=== PATIENT | male | born 1980 | race Caucasian/White ===

== ENCOUNTER 2016-09-19 14:31 | Emergency (ER) | payer OTHER ==
[2016-09-19] MEDS ORDERED: ONDANSETRON 4 MG/2 ML VIAL IVP STA (16:06)
[2016-09-19] MEDS ORDERED: SODIUM CHLORIDE 0.9% 2,000 ML IV STA (16:06)
[2016-09-19] MEDS ORDERED: ACETAMINOPHEN IV (For NPO) 1,000 MG in SALINE 1 100ML.BAG IVPB STA (16:07)
[2016-09-19] MEDS ORDERED: FAMOTIDINE 20 MG/2 ML VIAL IV STA (16:07)
--- NOTE | 2016-09-19 16:09 | ED ---
General Adult HPI - General Chief complaint: Fever Stated complaint: Vomitting/Dizzy Time Seen by Provider: 09/19/16 16:03 Source: patient, family, RN notes reviewed Mode of arrival: ambulatory Limitations: no limitations - History of Present Illness Initial comments: Patient is a pleasant 36-year-old male presenting to the emergency Department with nausea and vomiting. Onset was less than 48 hours ago. Patient has continued nausea and dry heaves. Decreased oral intake. No constipation or diarrhea. Patient last medicine was night quell around 9 this morning. Patient has had subjective fevers. Patient complains of myalgias, mostly of the legs. No abdominal pain. No upper respiratory symptoms. No cough or dyspnea. - Related Data Home Medications Medication Instructions Recorded Confirmed [id number] 1 tab PO Q4HR PRN 09/19/16 09/19/16 [Excedrin] D-Methorphan/Acetamin/Doxylamn 15 - 30 ml PO Q6H PRN 09/19/16 09/19/16 [Vicks Nyquil Cold & Flu Liquid] Losartan Potassium [Cozaar] 50 mg PO DAILY 09/19/16 09/19/16 amLODIPine [Norvasc] 10 mg PO DAILY 09/19/16 09/19/16 lamoTRIgine [LaMICtal] 100 mg PO DAILY 09/19/16 09/19/16 Previous Rx's Medication Instructions Recorded Ondansetron Odt [Zofran Odt] 4 mg PO Q8HR PRN #10 tab 09/19/16 Allergies Allergy/AdvReac Type Severity Reaction Status Date / Time brompheniramine Allergy Unknown Verified 09/19/16 16:18 [From Dimetane-DX] Childhood dextromethorphan Allergy Unknown Verified 09/19/16 16:18 [From Dimetane-DX] Childhood phenylpropanolamine Allergy Unknown Verified 09/19/16 16:18 [From Dimetapp Childhood (brompheniramine-PPA)] pseudoephedrine Allergy Unknown Verified 09/19/16 16:18 [From Dimetane-DX] Childhood Review of Systems ROS Statement: Those systems with pertinent positive or pertinent negative responses have been documented in the HPI. ROS Other: All systems not noted in ROS Statement are negative. Constitutional: Reports: fever, chills Eyes: Denies: eye pain ENT: Denies: ear pain Respiratory: Denies: cough, dyspnea Cardiovascular: Denies: chest pain Endocrine: Reports: fatigue Gastrointestinal: Reports: nausea, vomiting. Denies: abdominal pain, diarrhea, constipation Genitourinary: Denies: dysuria Musculoskeletal: Denies: back pain Skin: Denies: rash Neurological: Denies: headache Past Medical History Past Medical History: Hypertension History of Any Multi-Drug Resistant Organisms: None Reported Past Surgical History: No Surgical Hx Reported Past Psychological History: No Psychological Hx Reported Smoking Status: Current every day smoker Past Alcohol Use History: None Reported Past Drug Use History: None Reported General Exam Limitations: no limitations General appearance: alert, in no apparent distress Head exam: Present: atraumatic Eye exam: Present: normal appearance, PERRL ENT exam: Present: normal oropharynx Neck exam: Present: normal inspection Respiratory exam: Present: normal lung sounds bilaterally Cardiovascular Exam: Present: regular rate, normal rhythm GI/Abdominal exam: Present: soft. Absent: distended, tenderness, guarding, rebound, rigid Extremities exam: Present: normal inspection. Absent: tenderness, pedal edema, calf tenderness Neurological exam: Present: alert Psychiatric exam: Present: normal affect, normal mood Skin exam: Absent: rash Course Vital Signs 09/19/16 09/19/16 09/19/16 14:48 16:37 18:04 Temperature 102.8 F H 99.2 F Pulse Rate 92 83 78 Respiratory 16 20 16 Rate Blood Pressure 155/81 143/78 133/66 O2 Sat by Pulse 97 98 93 L Oximetry Medical Decision Making - Medical Decision Making Patient again reexamined and starting to feel even more improved. Patient tolerated ice chips. Patient is comfortable with discharge. - Lab Data Result diagrams: 09/19/16 16:36 09/19/16 16:36 Lab Results 09/19/16 09/19/16 Range/Units 16:36 16:36 WBC 7.9 (3.8-10.6) k/uL RBC 5.01 (4.30-5.90) m/uL Hgb 14.8 (13.0-17.5) gm/dL Hct 43.1 (39.0-53.0) % MCV 86.0 (80.0-100.0) fL MCH 29.6 (25.0-35.0) pg MCHC 34.4 (31.0-37.0) g/dL RDW 14.0 (11.5-15.5) % Plt Count 160 (150-450) k/uL Neutrophils % 87 % Lymphocytes % 7 % Monocytes % 5 % Eosinophils % 0 % Basophils % 0 % Neutrophils # 6.9 (1.3-7.7) k/uL Lymphocytes # 0.5 L (1.0-4.8) k/uL Monocytes # 0.4 (0-1.0) k/uL Eosinophils # 0.0 (0-0.7) k/uL Basophils # 0.0 (0-0.2) k/uL Sodium 137 (137-145) mmol/L Potassium 3.9 (3.5-5.1) mmol/L Chloride 101 (98-107) mmol/L Carbon Dioxide 20 L (22-30) mmol/L Anion Gap 16 mmol/L BUN 8 L (9-20) mg/dL Creatinine 0.83 (0.66-1.25) mg/dL Est GFR (MDRD) Af Amer >60 (>60 ml/min/1.73 sqM) Est GFR (MDRD) Non-Af >60 (>60 ml/min/1.73 sqM) Glucose 110 H (74-99) mg/dL Calcium 8.9 (8.4-10.2) mg/dL Total Bilirubin 0.6 (0.2-1.3) mg/dL AST 35 (17-59) U/L ALT 46 (21-72) U/L Alkaline Phosphatase 69 (38-126) U/L Total Protein 7.2 (6.3-8.2) g/dL Albumin 4.3 (3.5-5.0) g/dL Amylase 34 (30-110) U/L Lipase 38 (23-300) U/L Disposition Clinical Impression: Vomiting, Fever Disposition: HOME SELF-CARE Condition: Stable Instructions: Fever in Adults (ED) Additional Instructions: Please follow-up with primary care physician in the next couple days for recheck. Return for not tolerating fluids, uncontrolled fever, abdominal pain, worsening symptoms or other concerns. [id number] Tylenol and Motrin as needed. Prescriptions: Ondansetron Odt [Zofran Odt] 4 mg PO Q8HR PRN #10 tab PRN Reason: Nausea Referrals: Migel Dobson DO [Primary Care Provider] - 1-2 days
[2016-09-19 17:05] LABS: Basophils % (A) 0 %; CH 30.8; CHCM 35.9; Eosinophils % (A) 0 %; HCT 43.1 % (39.0-53.0); HDW 2.73; HGB 14.8 gm/dL (13.0-17.5); Luc # (Auto) 0.09; Luc % (Auto) 1; Lymphocytes # (A) 0.5 k/uL (1.0-4.8); Lymphocytes % (A) 7 %; MCH 29.6 pg (25.0-35.0); MCHC 34.4 g/dL (31.0-37.0); Mean Platelet Volume 7.4; Monocytes # (A) 0.4 k/uL (0-1.0); Monocytes % (A) 5 %; Neutrophils # (A) 6.9 k/uL (1.3-7.7); Neutrophils % (A) 87 %; RBC 5.01 m/uL (4.30-5.90); WBC 7.9 k/uL (3.8-10.6); WBC (Perox) 7.97
[2016-09-19 17:14] LABS: ALT 46 U/L (21-72); AST 35 U/L (17-59); Alkaline Phosphatase 69 U/L (38-126); Amylase 34 U/L (30-110); Anion Gap 16 mmol/L; Blood Urea Nitrogen 8 mg/dL (9-20); Calcium 8.9 mg/dL (8.4-10.2); Carbon Dioxide 20 mmol/L (22-30); Chloride 101 mmol/L (98-107); Glucose 110 mg/dL (74-99); Non-African American GFR(MDRD) >60 (>60 ml/min/1.73 sqM); Potassium 3.9 mmol/L (3.5-5.1); Sodium 137 mmol/L (137-145); Total Bilirubin 0.6 mg/dL (0.2-1.3); Total Protein 7.2 g/dL (6.3-8.2)
[2016-09-19] MEDS ORDERED: IBUPROFEN IV 800 MG in SODIUM CHLORIDE 0.9% 250 ML IV ONE (17:21)
[2016-09-19 18:06] VITALS: RESP 16
[2016-09-19 19:28] VITALS: BP 130/85; PULSE 77; TEMP 97.8
[2016-09-19 19:53] LABS: Appearance,Urine Clear (Clear); Bilirubin,Urine Negative (Negative); Glucose,Urine (UA) Negative (Negative); Ketones,Urine 1+ (Negative); Leukocyte Esterase,Urine Negative (Negative); Mucus,Urine Rare /hpf; Nitrite,Urine Negative (Negative); Particle Count 1349; Protein,Urine Trace (Negative); RBC,Urine 3 /hpf (0-5); Specific Gravity,Urine 1.014 (1.001-1.035); UA Billing (MACRO vs. MICRO) MICRO; Urobilinogen,Urine <2.0 mg/dL (<2.0); WBC,Urine 1 /hpf (0-5)
== END 2016-09-19 19:34 | disposition home or self-care (01) ==
LOC: EC 14:31
DX: R50.9 Fever, unspecified (principal); R11.2 Nausea with vomiting, unspecified; I10 Essential (primary) hypertension; F17.200 Nicotine dependence, unspecified, uncomplicated; Z79.899 Other long term (current) drug therapy; Z88.8 Allergy status to other drugs, medicaments and biological substances
CPT/HCPCS: 99285; 96365; 96375 ×2; 96361; 36415; 80053; 82150; 83690; 85025; 81001; J2405; J0131; J1741

== ENCOUNTER → 2016-10-10 | Outpatient (CLI) | payer OTHER ==
--- NOTE | 2016-10-10 14:27 | CT ---
EXAMINATION TYPE: CT chest w con DATE OF EXAM: 10/10/2016 1:43 PM COMPARISON: NONE HISTORY: Patient started coughing up blood last night, it is both dark and bright blood CT DLP: 665 mGycm, Automated exposure control for dose reduction was used. CONTRAST: Performed injected with 100 mL of Omnipaque 300. TECHNIQUE: Axial images were obtained at 5 mm thick sections. Reconstructed images are reviewed on [employer] computer in the coronal plane. FINDINGS: Portion of the thyroid visualized is normal. No suspicious lung nodules or focal infiltrates are present. Tracheobronchial tree below the vocal co rds appears normal. No enlarged mediastinal or hilar adenopathy is evident. The ascending aorta diameter at the level o f the main pulmonary artery is 3.5 cm. The main pulmonary artery diameter at the bifurcation is 2.[address] sections are obtained through the upper abdomen. There is some mild fatty infiltration wit hin the liver. Upper abdomen is otherwise unremarkable. IMPRESSIONS: 1. Normal Chest CT.
== END | disposition home or self-care (01) ==
LOC: RADCTMAIN 13:01
PROVIDERS: ATTEND Family Medicine
DX: R04.2 Hemoptysis (principal)
CPT/HCPCS: 71260; Q9967

== ENCOUNTER → 2023-07-04 | Outpatient (CLI) | payer BC ==
--- NOTE | 2023-07-04 09:23 | US ---
EXAMINATION TYPE: US renal artery duplex complet DATE OF EXAM: 07/04/2023 COMPARISON: NONE CLINICAL INDICATION: Male, 43 years old with history of I70.1 RENAL ARTERY STENOSIS; Uncontrolled HTN . On HTN meds. No hx of renal abnormality. MEASUREMENTS: RENAL SIZE: Rt Kidney: 10.5 x 5.2 x 5.8 cm Lt Kidney: 11.9 x 4.6 x 5.9 cm RESISTANCE INDEX Right: 0.6 Left: 0.6 RA/AO RATIO (< 3.5 ) Right: 1.7 Left: 2.3 RA VELOCITY ( < 180 cm/s) Right: 145.3 Left: 172.0 No AAA visualized at time of scan. Right kidney - No abnormality visualized Left kidney - No abnormality visualized IMPRESSION: No evidence for renal artery stenosis.
== END | disposition home or self-care (01) ==
LOC: RADUSWWP 07:10
PROVIDERS: ATTEND Internal Medicine Clinical Cardiac Electrophysiology
DX: I70.1 Atherosclerosis of renal artery (principal); I10 Essential (primary) hypertension
CPT/HCPCS: 93975